=== PATIENT | female | born 1960 | race Caucasian/White ===

== ENCOUNTER 2020-05-24 14:40 | Outpatient (CLI) | payer MEDICAID ==
[2020-05-24] MEDS ORDERED: GABA300C PO (15:09)
[2020-05-24] MEDS ORDERED: IBUP-1223 PO (15:09)
[2020-05-24] MEDS ORDERED: CYCL10TA2 PO (15:09)
[2020-05-24] MEDS ORDERED: ESCI20TA10 PO (15:09)
[2020-05-24] MEDS ORDERED: ACET-1600 PO (15:09)
[2020-05-24 15:44] LABS: BASOPHILS % (AUTO) 1 % (0-1); EOSINOPHILS % (AUTO) 6 % (1-7); LYMPHOCYTES % (AUTO) 20 % (22-44); MEAN CORPUSCULAR HEMOGLOBIN 28.6 pg (27.0-34.8); MEAN CORPUSCULAR HGB CONC 33.9 g/dL (32.4-35.8); MEAN PLATELET VOLUME 7.3 fL (7.4-10.4); MONOCYTES % (AUTO) 9 % (2-9); NEUTROPHILS % (AUTO) 65 % (42-75); PLATELET COUNT 378 x10^3/uL (130-400); RED BLOOD COUNT 4.28 x10^6/uL (3.82-5.3)
[2020-05-24 15:56] LABS: ANION GAP 6 mmol/L (5-15); CALCIUM 8.9 mg/dL (8.5-10.1); CHLORIDE 110 mmol/L (98-107); CREATININE 0.86 mg/dL (0.55-1.02)
[2020-05-24 16:14] LABS: MD NO
[2020-05-24 16:17] LABS: INTERNATIONAL NORMALIZED RATIO 0.95 (0.93-1.1); PROTHROMBIN TIME 10.2 Seconds (9.6-11.5)
[2020-05-24 16:56] LABS: MICROSCOPIC INDICATED
== END 2020-05-24 23:59 | disposition home or self-care (01) ==
LOC: STAR 14:40
PROVIDERS: ATTEND Urology
DX: Z01.818 Encounter for other preprocedural examination (principal); N20.1 Calculus of ureter
CPT/HCPCS: 36415; 80048; 81001; 85025; 85610; 87077; 87086; 87186

== ENCOUNTER 2020-05-28 05:28 | Day surgery (SDC) | payer MEDICAID ==
[~2020-05-28] VITALS: Ht 170.2 cm; Wt 78.0 kg
[~2020-05-28 05:28] MED LIST: ACET-1600 PO; CYCL10TA2 PO; ESCI20TA10 PO; GABA300C PO; IBUP-1223 PO
[2020-05-28] MEDS ORDERED: LIDOCAINE-MPF 1%, 2ML INFIL ONE (06:30)
[2020-05-28] MEDS ORDERED: CHLORHEXIDINE 15 ML UDC PO ONE (06:30)
[2020-05-28] MEDS ORDERED: LACTATED RINGERS 1,000 ML IV SCH (06:30)
[2020-05-28] MEDS ORDERED: OMNIPAQUE 350 MG/ML, 50 ML BOTTLE ONE (06:49)
[2020-05-28] MEDS ORDERED: FENTANYL PF 250 MCG/5ML ONE (07:00)
[2020-05-28] MEDS ORDERED: MIDAZOLAM 1 MG/ML, 2ML ONE (07:00)
[2020-05-28] MEDS ORDERED: ALBUTEROL/IPRATROPIUM 2.5MG/0.5MG, 3 ML NPPB PRN (07:30)
[2020-05-28] MEDS ORDERED: FENTANYL PF 100 MCG/2ML IV PRN (07:30)
[2020-05-28] MEDS ORDERED: METOCLOPRAMIDE 5 MG/ML, 2ML IVPush PRN (07:30)
[2020-05-28] MEDS ORDERED: hydrALAzine 20 MG/ML, 1ML IV PRN (07:30)
[2020-05-28] MEDS ORDERED: MEPERIDINE/PF 25MG/0.5ML IVPush PRN (07:30)
[2020-05-28] MEDS ORDERED: METHOCARBAMOL 1,000 MG in DEXTROSE 5% 100 ML IV PRN (07:30)
[2020-05-28] MEDS ORDERED: PROMETHAZINE 25 MG/ML, 1ML IVPush PRN (07:30)
[2020-05-28] MEDS ORDERED: EPHEDRINE 50 MG/ML, 1ML IVPush PRN (07:30)
[2020-05-28] MEDS ORDERED: ALBUTEROL SULFATE 2.5 MG/3 ML NPPB PRN (07:30)
[2020-05-28] MEDS ORDERED: ONDANSETRON 2MG/ML, 2ML IVPush PRN (07:30)
[2020-05-28] MEDS ORDERED: HYDROmorphone 1 MG/ML, 1ML INJ IVPush PRN (07:30)
[2020-05-28] MEDS ORDERED: LABETALOL 5MG/ML, 20ML IV PRN (07:30)
[2020-05-28] MEDS ORDERED: HALOPERIDOL 5 MG/ML IV PRN (07:30)
[2020-05-28] MEDS ORDERED: METOPROLOL 1 MG/ML, 5ML IV PRN (07:30)
[2020-05-28] MEDS ORDERED: DIPHENHYDRAMINE 50 MG/ML, 1ML IVPush PRN (07:30)
[2020-05-28] MEDS ORDERED: ACETAMINOPHEN 325 MG TABLET PO PRN (07:30)
[2020-05-28] MEDS ORDERED: EPHEDRINE 50 MG/ML, 1ML ONE (07:44)
[2020-05-28] MEDS ORDERED: DEXAMETHASONE 4 MG/ML, 1ML ONE (07:44)
[2020-05-28] MEDS ORDERED: PHENYLEPHRINE 10 MG/ML ONE (07:44)
[2020-05-28] MEDS ORDERED: ONDANSETRON 2MG/ML, 2ML ONE (07:44)
[2020-05-28] MEDS ORDERED: PROPOFOL 10 MG/ML, 20ML ONE (07:44)
[2020-05-28] MEDS ORDERED: CEFAZOLIN 1,000 MG ONE (07:44)
[2020-05-28] MEDS ORDERED: OXYcodone 5 MG/5 ML ORAL.SOL UDC ONE (10:07)
[2020-05-28] MEDS ORDERED: ACETAMINOPHEN 650 MG/20.3 ML UDC ONE (10:07)
[2020-05-28] MEDS: OXYcodone 5 MG/5 ML ORAL.SOL UDC PO PRN ×2 (10:10→11:06)
== END 2020-05-28 15:08 | disposition home or self-care (01) ==
LOC: OUT 05:28 → MERGE 15:30
PROVIDERS: ATTEND Urology
DX: T83.122A Displacement of indwelling ureteral stent, initial encounter (principal); N20.1 Calculus of ureter; F32.9 Major depressive disorder, single episode, unspecified; Z79.899 Other long term (current) drug therapy; Y83.8 Other surgical procedures as the cause of abnormal reaction of the patient, or of later complication, without mention of misadventure at the time of the procedure
CPT/HCPCS: 52356; 74018; C1758; C1769; C2617; J0690; J1100; J2250; J2370; J2405; J2704; J3010; J7120; Q9967; 76000

== ENCOUNTER 2020-06-12 11:54 | Emergency (ER) | payer MEDICAID ==
[~2020-06-12] VITALS: Ht 170.2 cm; Wt 76.8 kg
[2020-06-12] MEDS ORDERED: KETOROLAC 30 MG/1 ML IM ONE (12:30)
[2020-06-12] MEDS ORDERED: DIAZEPAM 5 MG TABLET PO ONE (12:30)
[2020-06-12] MEDS ORDERED: KETOROLAC 60 MG/2 ML ONE (12:36)
[2020-06-12] MEDS ORDERED: DIAZEPAM 5 MG TABLET ONE (12:36)
--- NOTE | 2020-06-12 12:41 | NUR ---
PT AMBULATORY W/ A STEADY GAIT TO BR.
[2020-06-12 12:48] LABS: BASOPHILS % (AUTO) 1 % (0-1); EOSINOPHILS % (AUTO) 2 % (1-7); LYMPHOCYTES % (AUTO) 16 % (22-44); MEAN CORPUSCULAR HEMOGLOBIN 28.3 pg (27.0-34.8); MEAN CORPUSCULAR HGB CONC 33.5 g/dL (32.4-35.8); MEAN PLATELET VOLUME 7.5 fL (7.4-10.4); MONOCYTES % (AUTO) 9 % (2-9); NEUTROPHILS % (AUTO) 72 % (42-75); PLATELET COUNT 546 x10^3/uL (130-400); RED BLOOD COUNT 3.92 x10^6/uL (3.82-5.3); RED CELL DISTRIBUTION WIDTH 15.3 % (9.6-15.2)
[2020-06-12 12:54] LABS: MD NO
[2020-06-12 12:59] LABS: ALANINE AMINOTRANSFERASE 26 U/L (12-78); ALBUMIN 3.4 g/dL (3.4-5.0); ANION GAP 5 mmol/L (5-15); CALCIUM 9.2 mg/dL (8.5-10.1); CHLORIDE 110 mmol/L (98-107); CREATININE 0.79 mg/dL (0.55-1.02)
[2020-06-12 13:01] LABS: ALKALINE PHOSPHATASE 121 U/L (45-117); BILIRUBIN,TOTAL 0.4 mg/dL (0.2-1.0); TOTAL PROTEIN 7.7 g/dL (6.4-8.2)
--- NOTE | 2020-06-12 13:01 | NUR ---
URINE COLLECTED AND SENT TO LAB. PT MEDICATED PER EMAR. PT TACHYCARDIC, OTHER VS WDL. AWAITING US.
[2020-06-12 13:17] LABS: MICROSCOPIC AUTO
[2020-06-12 13:30] LABS: AMPHETAMINE SCREEN, URINE Positive (Negative); BARBITURATE SCREEN, URINE Negative (Negative); BENZODIAZEPINE SCREEN, URINE Negative (Negative); CANNABINOID SCREEN, URINE Negative (Negative); COCAINE SCREEN, URINE Negative (Negative); METHADONE SCREEN, URINE Negative (Negative); OPIATE SCREEN, URINE Negative (Negative)
--- NOTE | 2020-06-12 13:50 | NUR ---
ALL TESTS RESULTED. PT IS UP FOR RECHECK AT THIS TIME.
[2020-06-12] MEDS ORDERED: CEFTRIAXONE 1,000 MG in DEXTROSE 5% 50 ML IVPB ONE (14:00)
[2020-06-12] MEDS ORDERED: SODIUM CHLORIDE FLUSH 10ML SYR IVF ONE (14:00)
[2020-06-12] MEDS ORDERED: SODIUM CHLORIDE 0.9% 1,000ML IVBOLUS ONE (14:00)
--- NOTE | 2020-06-12 14:01 | NUR ---
PT TO CT.
[2020-06-12 15:58] VITALS: BP 108/43
== END 2020-06-12 16:52 | disposition home or self-care (01) ==
LOC: ED 16:25
DX: S39.012A Strain of muscle, fascia and tendon of lower back, initial encounter (principal); N10 Acute pyelonephritis; F15.10 Other stimulant abuse, uncomplicated; N13.30 Unspecified hydronephrosis; F17.210 Nicotine dependence, cigarettes, uncomplicated; Z90.710 Acquired absence of both cervix and uterus; X58.XXXA Exposure to other specified factors, initial encounter; Y93.89 Activity, other specified; Y92.89 Other specified places as the place of occurrence of the external cause; Y99.8 Other external cause status
CPT/HCPCS: 36415; 74176; 76770; 80053; 80307; 81001; 85025; 87086; 96365; 96372; 99285; 99406; J0696; J1885; J7030